=== PATIENT | female | born 1990 | race Two or more races ===

== ENCOUNTER → 2016-07-17 | Outpatient (REF) | payer OTHER ==
[2016-07-22 12:48] LABS: O+P EXAM Result 1
== END ==
LOC: M LAB REF 11:56
PROVIDERS: ATTEND Physician Assistant
DX: R19.7 Diarrhea, unspecified (principal); Z20.7 Contact with and (suspected) exposure to pediculosis, acariasis and other infestations

== ENCOUNTER → 2018-07-21 | Outpatient (REF) | payer BC | LOC: M LAB REF 12:17 | PROVIDERS: ATTEND Nurse Practitioner Women's Health | DX: Z34.83 Encounter for supervision of other normal pregnancy, third trimester (principal) ==